=== PATIENT | female | born 1970 | race Asian ===

== ENCOUNTER 2019-01-06 14:06 | Emergency (ER) | payer OTHER ==
[~2019-01-06] VITALS: Ht 152.4 cm; Wt 61.7 kg
== END 2019-01-06 21:18 | disposition home or self-care (01) ==
LOC: ER 14:06
DX: S01.02XA Laceration with foreign body of scalp, initial encounter (principal); W45.8XXA Other foreign body or object entering through skin, initial encounter; Y93.89 Activity, other specified; Y92.018 Other place in single-family (private) house as the place of occurrence of the external cause; Y99.8 Other external cause status